=== PATIENT | male | born 1965 | race Caucasian/White ===

== ENCOUNTER 2017-06-21 02:09 | Inpatient (IN) | payer BC ==
[2017-06-21] VITALS (8 sets, daily range): BP systolic 106–128; BP diastolic 63–82
[~2017-06-21] VITALS: Ht 170.2 cm; Wt 80.3 kg
[~2017-06-21 02:09] MED LIST: FLEXERIL PO; IBUPROFEN 800800 MG PO; NAPROXEN DELAY500 M1 PO; NOHOMEMEDICATIONS; NORCO 5-325 TA1 EACH PO; PREDNISONE50 MG PO; TRAMADOL 50 MG50 MG PO; VICOPROFEN 2001 EACH PO
[2017-06-21] MEDS ORDERED: PRILOSEC 20 MG20 MG PO (02:16)
[2017-06-21 02:31] LABS: ABSOLUTE BASOPHILS 0.1 thou/uL (0.0-0.2); ABSOLUTE EOSINOPHILS 0.4 thou/uL (0.0-0.7); ABSOLUTE LYMPHOCYTES 1.6 thou/uL (0.8-5.3); ABSOLUTE MONOCYTES 0.7 thou/uL (0.0-1.2); ABSOLUTE NEUTROPHILS 3.6 thou/uL (1.6-8.1); BASOPHILS 1.5 %; EOSINOPHILS 6.3 %; HEMATOCRIT 47.4 % (42.0-52.0); HEMOGLOBIN 15.8 gm/dL (14.0-18.0); LYMPHOCYTES 24.8 %; MCH 29.3 pg (26.0-34.0); MCHC 33.4 g/dL (28.0-37.0); MCV 87.8 fL (80.0-100.0); MONOCYTES 10.5 %; MPV 11.2 fl. (7.2-11.1); NUCLEATED RBCS 0 /100WBC; PLATELET COUNT* 109 thou/uL (150-400); POLYS 56.9 %; RDW-CV 13.8 % (10.5-14.5); WBC 6.3 thou/uL (4.0-11.0)
[2017-06-21 02:38] LABS: ANION GAP 7 mmol/L (7-16); BUN 17 mg/dL (7-18); CALCIUM 8.9 mg/dL (8.5-10.1); CHLORIDE 105 mmol/L (98-107); CO2 28 mmol/L (21-32); CREATININE 1.3 mg/dL (0.6-1.3); GLUCOSE 94 mg/dL (70-99); SODIUM 140 mmol/L (136-145)
[2017-06-21 02:40] LABS: INR 1.1; PROTIME 10.7 Seconds (9.20-11.50)
[2017-06-21 02:49] LABS: ALBUMIN 4.1 g/dL (3.4-5.0); ALKALINE PHOSPHATASE 70 U/L (46-116); LIPASE 280 U/L (73-393); NT-PRO BRAIN NAT PEPTIDE 17 pg/mL (<300); SGOT 28 U/L (15-37); SGPT 37 U/L (30-65); TOTAL BILIRUBIN 0.6 mg/dL (<0.1-1.0); TOTAL PROTEIN 7.5 g/dL (6.4-8.2); TROPONIN-I LEVEL <0.06 ng/mL (<0.06)
--- NOTE | 2017-06-21 05:42 | NUR ---
ASSUMED CARE OF PATIENT AT 0430 NEW ADMIT FOR SX OF CHEST PAIN TO ROOM 218 SPOUSE AT BEDSIDE DURING THE ASSESSMENT THE PATIENT APPEARS SR ON THE MONITOR O2 SAT MAINTAINED ON RA CONTINUES TO BE UP AD VALENTIN ORIENTATED TO UNIT, AND CALL LIGHT SYSTEM STATES UNDERSTANDING SAFETY INTERVENTIONS CONTINUE FALL AGREEMENT SIGNED BED LOWERED WHEELS LOCKED CALL LIGHT IN REACH SIDE RAILS UP REPORT TO BE GIVEN TO ONCOMING RN
[2017-06-21 06:26] LABS: URINE BILIRUBIN NEGATIVE (Negative); URINE BLOOD NEGATIVE (Negative); URINE CLARITY CLEAR; URINE COLOR YELLOW; URINE GLUCOSE-RANDOM NEGATIVE (Negative); URINE KETONES NEGATIVE (Negative); URINE LEUKOCYTES-REFLEX NEGATIVE (Negative); URINE NITRITE-REFLEX NEGATIVE (Negative); URINE PROTEIN TRACE (Negative); URINE SPECIFIC GRAVITY 1.015 (1.005-1.030); URINE UROBILINOGEN 0.2 E.U./dl (0.2-1.0)
[2017-06-21 06:34] LABS: AMP/METHAMP Negative (Negative); BARBITURATES Negative (Negative); BENZODIAZEPINES Negative (Negative); COCAINE Negative (Negative); METHADONE Negative (Negative); OPIATES Negative (Negative); PCP Negative (Negative); THC Negative (Negative)
--- NOTE | 2017-06-21 09:17 | NUR ---
CM SPOKE TO THE PATIENT TO DISCUSS HOME SITUATION, DISCHARGE PLANNING, AND TO INFORM OF THE ROLE OF CM. PATIENT ALERT, ORIENTED, AND INDEPENDENT WITH ADL'S. PATIENT WORKS AND DRIVES. PATIENT USES 0 DME. PATIENT HAS NO HX OF HH OR SNF. CM RECEIVED A REFERRAL TO PROVIDE PATIENT A LIST OF IN-NETWORK PCP'S. CM PROVIDED PATIENT AN IN-NETWORK PCP LIST. PATIENT DOES NOT ANTICIPATE ANY OTHER NEEDS AT D/C. CM WILL REMAIN AVAILABLE TO ASSIST AND FOLLOW NEEDED.
--- NOTE | 2017-06-21 10:44 | NUR ---
ASSUMED PT CARE THIS AM. REPORT RECEIVED FROM NURSE. PATIENT IS ALERT AWAKE ORIENTED X 34. NO COMPLAIN OF PAIN AT THIS MOMENT. SINUS RYTHM ON THE MONITOR. ASSESSMENT PERFORMED , REFER TO CHART. VITAL SIGNS ARE WITHIN NORMAL LIMIT. PT CURRENTLY NPO PENDING FOR STRESS TEST THIS AFTERNOON AT 13:00. EDUCATION REGARDING STRESS TEST AND NPO STATUS PROVIDED. PT STATES UNDERSTANDING. PLAN IS TO CONTINUE MONITORINF ECHO, LAB RESULTS, WAIT FOR STRESS TEST RESULT. WILL CONTINUE TO MONITOR.
--- NOTE | 2017-06-21 10:55 | EKG ---
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1965 Requested By: Minna Watts Order Number: [id number] MD: Meño Virk Measurements Intervals Pyatt Rate: 61 P: 49 MA: 144 QRS: 76 QRSD: 107 T: 14 QT: 367 QTc: 370 Interpretive Statements Sinus rhythm Baseline wander in lead(s) V6 Compared to ECG 09/02/2011 09:33:35 Sinus arrhythmia no longer present Electronically Signed On 06-21-2017 10:55:25 CDT by Meño Virk [email or web address] <ELECTRONICALLY SIGNED> By: Meño Virk MD, [facility] 06/21/17 1055 2 Meño Virk MD, [facility] /EPI
[2017-06-21] MEDS ORDERED: PANTOPRAZOLE SO40 M1 PO (12:04)
--- NOTE | 2017-06-21 14:01 | 2DMMODE ---
[place] [address] 2 D/M-MODE ECHOCARDIOGRAM Name: NEFTALI CHILDS II Room: [address] IN ..#: [id number] Admission: 06/21/17 Attend Phys: Mynor Whatley, Discharge: Date of : 65 Date of Service: 06/21/17 1401 Report #: [id number] THIS REPORT FOR: //name// APPROVED REPORT Study performed: 06/21/2017 11:32:46 EXAM: Comprehensive 2D, Doppler, and color-flow Echocardiogram Patient Location: Bedside BSA: 1.92 HR: 61 bpm BP: 115/69 mmHg Other Information Study Quality: Good Indications Chest Pain 2D Dimensions LVEF(%): 70.30 (>50%) IVSd: 11.12 (7-11mm) LVOT Diam: 20.73 (18-24mm) LVDd: 46.46 mm PWd: 8.12 (7-11mm) Ascending Ao: 34.46 (22-36mm) LVDs: 28.02 (25-40mm) Aortic Root: 29.33 mm Sanon's LVEF: 70.30 % Volumes Left Atrial Volume (Systole) LA ESV Index: 22.10 mL/m2 Aortic Valve AoV Peak Kayden.: 1.22 m/s AO Peak Gr.: 5.98 mmHg LVOT Max P.45 mmHg AO Mean Gr.: 3.05 mmHg LVOT Mean P.96 mmHg LVOT Max V: 1.05 m/s AO V2 VTI: 24.34 cm LVOT Mean V: 0.63 m/s AUDREY (VTI): 2.87 cm2 LVOT V1 VTI: 20.71 cm Mitral Valve E/A Ratio: 1.24 MV Decel. Time: 188.55 ms MV E Max Kayden.: 0.68 m/[place] [address] 2 D/M-MODE ECHOCARDIOGRAM Name: NEFTALI CHILDS II Room: [address] IN [facility]#: [id number] Admission: 06/21/17 Attend Phys: Mynor Whatley, Discharge: Date of : 65 Date of Service: 06/21/17 1401 Report #: [id number] MV PHT: 54.68 ms MVA (PHT): 4.02 cm2 TDI E/Lateral E': 4.00 E/Medial E': 5.67 Medial E' Kayden.: 0.12 m/s Lateral E' Kayden.: 0.17 m/s Pulmonary Valve PV Peak Kayden.: 1.01 m/s PV Peak Gr.: 4.12 mmHg Tricuspid Valve RAP Estimate: 5.00 mmHg TR Peak Gr.: 18.09 mmHg RVSP: 23.09 mmHg PA Pressure: 23.09 mmHg Left Ventricle The left ventricle is normal size. There is normal LV segmental wall motion. There is normal left ventricular wall thickness. Left ventricular systolic function is normal. The left ventricular ejection fraction is within the normal range. LVEF is 60-65%. The left ventricular diastolic function is normal. Right Ventricle The right ventricle is normal size. The right ventricular systolic function is normal. Atria The left atrium size is normal. The right atrium size is normal. Aortic Valve The aortic valve is normal in structure. No aortic regurgitation is present. There is no aortic valvular stenosis. Mitral Valve The mitral valve is normal in structure. There is no mitral valve regurgitation noted. No evidence of mitral valve stenosis. Tricuspid Valve The tricuspid valve is normal in structure. Trace tricuspid regurgitation. Pulmonic Valve The pulmonary valve is normal in structure. [place] [address] 2 D/M-MODE ECHOCARDIOGRAM Name: NAZNEFTALI Radhames HYATT Room: [address] IN [facility]#: [id number] Admission: 06/21/17 Attend Phys: Mynor Whatley, Discharge: Date of : 65 Date of Service: 06/21/17 1401 Report #: [id number] Great Vessels The aortic root is normal in size. IVC is normal in size and collapses with >50% inspiration Pericardium There is no pericardial effusion. <Conclusion> Left ventricular systolic function is normal. The left ventricular ejection fraction is within the normal range. <ELECTRONICALLY SIGNED> By: Meño Virk MD, FACC 06/21/17 1401 140 140 Meño Virk MD, FACC /INF
--- NOTE | 2017-06-21 16:25 | CARDNUC ---
[place] [address] CARDIAC NUCLEAR IMAGING REPORT Name: NEFTALI CHILDS II Room: [address]#: [id number] Admission: 06/21/17 Attend Phys: Mynor Whatley, Discharge: Date of : 65 Date of Service: 06/21/17 1625 Report #: [id number] THIS REPORT FOR: //name// APPROVED REPORT Study performed: 06/21/2017 07:36:00 Exam: Nuclear Stress Test Indication: Chest pain Patient Location: In-Patient Stress Tech: Irene Taylor Stress Nurse: Imani [place] RN NM Tech:WAQAR Dobbs Ht: 5 ft 7 in Wt: 177 lbs BSA: 1.92 m2 BMI: 27.71 Medical History Medical History: No history of CAD Medications: No cardiac medications Allergies: No known drug allergies Cardiac Risk Factors: Age, Tobacco History (Current/Recent) Exercise History: Physically active Stress Test Details Stress Test: Exercise stress testing was performed using a Elier protocol. HR Resting HR: 54 bpm Max Heart Rate (APMHR): 168 bpm Max HR Achieved: 154 bpm Target HR (85% APMHR): 142 bpm % of APMHR: 91 Recovery HR: 86 bpm HR response to stress: Normal HR response to stress BP Resting BP: 121/80 mmHg Max BP: 184/76 mmHg BP response to stress: Normal blood pressure response to stress. ECG Resting ECG: Sinus Rhythm, normal EKG Stress ECG: Sinus Tachycardia ST Change: None Arrhythmia: [place] [address] CARDIAC NUCLEAR IMAGING REPORT Name: NEFTALI CHILDS II Room: [address]#: [id number] Admission: 06/21/17 Attend Phys: Mynor Whatley, Discharge: Date of : 65 Date of Service: 06/21/17 1625 Report #: [id number] Recovery ECG: Sinus Rhythm, normal EKG Recovery ST Change: None Recovery Arrhythmia: None Clinical Reason for Termination: Leg pain/Claudication Stress Symptoms: Leg Fatigue Exercise duration: 10 min 52 sec Exercise capacity: 11.95 METs Overall Exercise Capacity for Age: Normal The patient had no significant symptoms with standard Elier protocol exercise. The patient exhibited excellent exercise tolerance. Stress ECG Conclusion The baseline 12 electrocardiogram showed sinus rhythm without significant ST or T wave abnormality. EKGs obtained during and post exercise stress show sinus rhythm and sinus tachycardia with no significant ST or T wave changes when compared to baseline. There were no stress-induced arrhythmias. NM EXAM: Myocardial Perfusion REST/STRESS Imaging Protocol: Rest Tc-99m/Stress Tc-99m 1 day Resting Data Rest SPECT myocardial perfusion imaging was performed in supine position 30 minutes following the intravenous injection of 11.2 mCi of Tc-99m Sestamibi. Time of rest injection: 1200 Time of rest imagin The images were gated to evaluate regional wall motion and calculate left ventricular ejection fraction. Administration Route: IV Exercise Stress At peak stress, the patient was injected intravenously with 34.3mCi of Tc-99m Sestamibi. Time of stress injection: 1400 Time of stress imagin Administration Route: IV Gated Stress SPECT was performed 30 minutes after stress injection. The images were gated to evaluate regional wall motion and calculate left ventricular ejection fraction. Prone imaging [place] [address] CARDIAC NUCLEAR IMAGING REPORT Name: NEFTALI CHILDS II Room: [address] IN [facility]#: [id number] Admission: 06/21/17 Attend Phys: Mynor Whatley, Discharge: Date of : 65 Date of Service: 06/21/17 1625 Report #: [id number] Study: Good Artifact: No artifact Study Data At rest, the left ventricular ejection fraction was 63%.. Post stress, the left ventricular ejection was 61%.. TID = 0.93. Perfusion Normal left ventricular perfusion. Wall Motion Normal left ventricular wall motion. Nuclear Conclusion ECG Findings: negative for ischemia Clinical Findings: negative for ischemia Nuclear Findings: negative for ischemia Exercise Capacity: normal Left Ventricular Function: normal Risk Study: low Myocardial perfusion images obtained at rest and post exercise stress show uniform uptake of the radioisotope throughout the myocardium without defect. On gated studies the left ventricle exhibits normal wall motion. This is a low risk study. <Conclusion> The baseline 12 electrocardiogram showed sinus rhythm without significant ST or T wave abnormality. EKGs obtained during and post exercise stress show sinus rhythm and sinus tachycardia with no significant ST or T wave changes when compared to baseline. There were no stress-induced arrhythmias. <ELECTRONICALLY SIGNED> By: Scott Alexis MD, FACC 06/21/17 1625 1625 1625 Scott Alexis MD, FACC /INF
--- NOTE | 2017-06-21 18:12 | NUR ---
PATIENT IS DISCHARGE TO HOME ACCOMPANIED BY AT 18:10. PATIENT AMBULATED INDEPENDENTLY. IV LINE IS OUT. EDUCATION ABOUT HOME MEDICATIONS AND FOLLOW UP CARE GIVEN. PATIENT VSs ARE STABLE. BELONGINGS BROUGHT ALONG.
--- NOTE | 2017-06-22 14:44 | CON ---
[address] [address] CONSULTATION Name: NEFTALI CHILDS II Room: [address] IN M.R.#: [id number] Admission: 06/21/17 Attend Phys: Mynor Whatley MD Discharge: 06/21/17 Date of : 65 Report #: [id number] THIS REPORT FOR: //name// CC: ANJELICA physician/PCP Mynor Whatley DATE OF SERVICE: 06/21/2017 CARDIOLOGY CONSULTATION HISTORY OF PRESENT ILLNESS: The patient is a 52-year-old white male who I was asked to see in the hospital after he had an episode of chest pain. The patient has no previous history of heart disease. He does have a long history of indigestion. He has had no previous cardiac evaluation. He states that last night he woke up at 11:00, felt heaviness in his chest and diaphoretic. He belched and it seemed to help. He actually vomited one time. He denied the pain radiating down his arm. There was no associated shortness of breath. He had had no recent cough. The pain persisted, so he came to the Emergency Room, was admitted last night. I was asked to see him for further evaluation and treatment. He denies exertional dyspnea, palpitations, syncope, edema. PAST MEDICAL HISTORY: Significant for previous hydrocele repair as a child, lump removed from his testicle that was benign, 3 knee surgeries. No history of hypertension, diabetes, hyperlipidemia. MEDICATIONS: He is on no medications. ALLERGIES: He has no known drug allergies and does not see a physician at this time. FAMILY HISTORY: Negative for heart disease. SOCIAL HISTORY: He is . He and his live in [place]. 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 Smokes half pack of cigarettes a day. Rarely drinks alcohol. REVIEW OF SYSTEMS: He has had no history of stroke, asthma, GI bleeding, liver disease, kidney disease, cancer, psychiatric illness, chronic skin condition. PHYSICAL EXAMINATION: GENERAL: Revealed a middle-aged male who appeared in no distress. VITAL SIGNS: He had a blood pressure 120/80, pulse 60, he is afebrile. HEENT: He is anicteric. Conjunctivae pink. Mucous members moist. NECK: Veins nondistended. No carotid bruits. Neck supple. CHEST: Clear to auscultation. CARDIOVASCULAR: Regular without murmur. ABDOMEN: Soft, nontender, [place] [address] CONSULTATION Name: NEFTALI CHILDS Radhames HYATT Room: [address]#: [id number] Admission: 06/21/17 Attend Phys: Mynor Whatley MD Discharge: 06/21/17 Date of : 65 Report #: [id number] EXTREMITIES: Had no edema. Posterior tibial pulse 2+ bilaterally. SKIN: Warm, dry. NEUROLOGIC: Nonfocal. LYMPHATIC: No adenopathy. MUSCULOSKELETAL: No joint effusion. His ECG done last night at 2:00 a.m. showed a sinus rhythm with no ST or T-wave change. His workup in the Emergency Room last night, he had a chest x-ray that showed normal heart size and clear lung davis. LABORATORY DATA: Sodium 140, creatinine 1.3, glucose 94. Liver function studies were normal. Troponin 0.06. White blood cell count 6.3 and hemoglobin 15.8. IMPRESSION AND RECOMMENDATIONS: 1. Chest pain. Atypical for angina. Minimal risk factors. Suspect noncardiac. The patient is scheduled to undergo a Cardiolite stress test today. 2. Tobacco abuse. <ELECTRONICALLY SIGNED> By: Meño Virk MD, FACC 06/22/17 1444 1340 [id number] Virk MD, FACC /nt
== END 2017-06-21 19:00 | disposition home or self-care (01) | DRG 313 ==
LOC: M.ERS 02:09 → M.2W 03:53 → M.TBA-ER 03:53 → M.2W 04:20
PROVIDERS: Emergency Medicine; ADMIT Internal Medicine
DX: R07.89 Other chest pain (principal); K21.9 Gastro-esophageal reflux disease without esophagitis; F17.210 Nicotine dependence, cigarettes, uncomplicated; G89.29 Other chronic pain; Z79.899 Other long term (current) drug therapy

== ENCOUNTER → 2018-04-22 | Outpatient (CLI) | payer BC ==
[~2018-04-22] MED LIST changes: +PANTOPRAZOLE SO40 M1 PO; +PRILOSEC 20 MG20 MG PO
== END ==
LOC: M.ULTRA 13:54
DX: N50.89 Other specified disorders of the male genital organs (principal); N50.9 Disorder of male genital organs, unspecified

== ENCOUNTER → 2020-03-05 | Outpatient (CLI) | payer OTHER | LOC: M.MRI 11:30 | PROVIDERS: ATTEND Family Medicine | DX: M51.37 Other intervertebral disc degeneration, lumbosacral region (principal); M48.07 Spinal stenosis, lumbosacral region; M54.42 Lumbago with sciatica, left side; M25.78 Osteophyte, vertebrae ==